=== PATIENT | female | born 1955 | race Caucasian/White ===

== ENCOUNTER 2017-12-05 17:36 | Emergency (ER) | payer OTHER ==
[~2017-12-05] VITALS: Ht 167.6 cm; Wt 82.5 kg
[~2017-12-05 17:36] MED LIST: GEODON20 MG PO
[2017-12-05] MEDS ORDERED: PROZAC10 MG (17:57)
[2017-12-05] MEDS ORDERED: GLUCOPHAGE500 MG PO (19:04)
== END 2017-12-05 19:18 | disposition home or self-care (01) ==
LOC: ED 17:36
DX: E11.65 Type 2 diabetes mellitus with hyperglycemia (principal); F20.9 Schizophrenia, unspecified; Z88.0 Allergy status to penicillin; Z88.1 Allergy status to other antibiotic agents; Z79.899 Other long term (current) drug therapy
CPT/HCPCS: 81001; 99283

== ENCOUNTER 2021-07-29 11:44 | Emergency (ER) | payer OTHER ==
[~2021-07-29] VITALS: Ht 167.6 cm; Wt 82.5 kg
[~2021-07-29 11:44] MED LIST changes: +GLUCOPHAGE500 MG PO; +PROZAC10 MG
[2021-07-29] MEDS ORDERED: FLUPHENAZINE HCL1 MG PO (11:59)
[2021-07-29] MEDS ORDERED: METFORMIN HCL500 MG PO (12:14)
[2021-07-29] MEDS ORDERED: FAMCICLOVIR500 MG PO (12:14)
== END 2021-07-29 12:25 | disposition home or self-care (01) ==
LOC: ED 11:44
DX: B02.9 Zoster without complications (principal); E11.65 Type 2 diabetes mellitus with hyperglycemia; Z88.0 Allergy status to penicillin; Z88.1 Allergy status to other antibiotic agents; Z88.8 Allergy status to other drugs, medicaments and biological substances; Z79.84 Long term (current) use of oral hypoglycemic drugs; Z79.899 Other long term (current) drug therapy
CPT/HCPCS: 99284

== ENCOUNTER 2022-11-20 15:08 | Emergency (ER) | payer OTHER ==
[~2022-11-20] VITALS: Ht 167.6 cm; Wt 82.5 kg
[~2022-11-20 15:08] MED LIST changes: +FAMCICLOVIR500 MG PO; +FLUPHENAZINE HCL1 MG PO; +METFORMIN HCL500 MG PO
[2022-11-20] MEDS ORDERED: ANTIFUNGAL113 GM TOP (16:23)
[2022-11-20 16:38] VITALS: BP 109/43
== END 2022-11-20 16:36 | disposition home or self-care (01) ==
LOC: ED 15:08
DX: B35.9 Dermatophytosis, unspecified (principal); E11.9 Type 2 diabetes mellitus without complications; Z88.0 Allergy status to penicillin; Z88.1 Allergy status to other antibiotic agents; Z88.8 Allergy status to other drugs, medicaments and biological substances; Z79.899 Other long term (current) drug therapy; Z79.84 Long term (current) use of oral hypoglycemic drugs
CPT/HCPCS: 99282